=== PATIENT | female | born 1970 | race Caucasian/White ===

== ENCOUNTER 2020-03-03 14:56 | Emergency (ER) | payer SELFPAY ==
[2020-03-03 15:02] VITALS: BP 130/74; PULSE 84; RESP 20; TEMP 36.9; O2SAT 97; BMI 20.3
--- NOTE | 2020-03-03 15:22 | ED_ITS ---
HPI - Headache General: Chief Complaint: Headache Stated Complaint: walter Time Seen by Provider: 03/03/20 15:16 History of Present Illness: HPI Narrative: Patient is a 49-year-old female who comes to the ED with a migraine. Patient says she has a history of migraines and that this current migraine is just like past migraines. Migraine started 3 days ago. She describes having visual aura, but that has since resolved. Endorses photophobia. She has symptoms of nausea and has had multiple episodes of emesis. She describes her migraine is in the back occipital region of head and rates it an 8 out of 10. Denies any recent head injury or trauma to cause acute migraine. She has just been taking Tylenol to help with headache and it has not provided any relief. Denies any numbness/tingling to face or weakness to face. Denies any numbness tingling or weakness to extremities or vision changes. Associated symptoms: Reports nausea and vomiting; Deny chest pain, fever(s) or rash Review of Systems Const: Denies: fever(s), chills or fatigue Eyes: Reports: photophobia; Denies: change in vision or eye discomfort ENMT: Denies: throat pain, odynophagia, nasal discharge or nasal congestion Card: Denies: chest pain, palpitations, edema, swelling of feet/ankles, dyspnea on exertion or orthopnea Resp: Denies: dyspnea, productive cough or non-productive cough GI: Reports: nausea and vomiting; Denies: abdominal pain, diarrhea, constipation or hematochezia : Denies: flank pain, dysuria or hematuria Musc: Denies: neck pain, back pain or extremity swelling Skin/Breast: Denies: rash or new lesions Neuro: Reports: headache(s); Denies: numbness in extremities or weakness in extremities Physical Exam Const: COMMON NORMALS: no acute distress, patient oriented x3, healthy appearing and alert GENERAL APPEARANCE: cooperative and comfortable HENMT: COMMON NORMALS: normocephalic HEAD & SCALP: normocephalic MOUTH: Normal oral and palatal mucosa present THROAT: posterior oropharynx normal and uvula midline Eye: COMMON NORMALS: Equal, round and reactive pupils present, EOMs intact bilaterally and normal visual flanagan by confrontation GENERAL EYE: appearance normal, both eyes and all related structures PUPIL: Yes Equal, round and reactive pupils present Neck/C-Spine: COMMON NORMALS: supple GENERAL: Yes normal visual inspection Resp: COMMON NORMALS: normal respiratory effort, No retractions, No use of accessory muscles and clear to auscultation bilaterally AUSCULTATION: clear to auscultation bilaterally Cardio: COMMON NORMALS: regular rate, regular rhythm, S1 normal heart sound present, S2 normal heart sound present, No gallops present (Cardio), No clicks present (Cardio), No murmurs present (Cardio) and Peripheral pulses 2+ throughout RATE: regular rate RHYTHM: regular rhythm HEART SOUNDS: S1 normal heart sound present and S2 normal heart sound present PERIPHERAL PULSES: Peripheral pulses 2+ throughout GI: COMMON NORMALS: Normal to inspection, nondistended, normoactive bowel sounds present, Soft to palpation, non-tender and no masses PALPATION: Yes Soft to palpation : COMMON NORMALS: Yes no CVA tenderness BLADDER/KIDNEY EXAM: Yes no CVA tenderness Back/Pelvis: COMMON NORMALS: no CVA tenderness Extremity: COMMON NORMALS: normal to inspection and no pedal edema Neuro: COMMON NORMALS: patient oriented x3, CN's II-XII intact bilaterally, moves all extremities, no focal motor deficits, no sensory deficits noted and gait normal SENSORIUM/ORIENTATION: Yes alert COORDINATION/BALANCE: [id number] test normal SPEECH: speech normal GAIT: Yes Normal gait present SENSORY EXAM: Yes extremities (sensation to soft touch intact to extremities bilaterally.) MOTOR EXAM: 5/5 motor strength present throughout COORDINATION: [id number] test normal Skin: GENERAL SKIN EXAM: dry skin Course 2 Reevaluation(s): Reevaluation #1: Patient says her migraine has improved greatly and she now rates it about a 5. Patient is ready to discharge to go home and rest. Time: 16:50 Vital Signs: Vital signs: Vital Signs Temperature 98.5 F 03/03/20 15:02 Pulse Rate 84 03/03/20 15:02 Respiratory Rate 20 H 03/03/20 15:02 Blood Pressure 130/74 03/03/20 15:02 Pulse Oximetry 97 03/03/20 15:02 MDM - Headache MDM Narrative: Medical decision making narrative: Patient is a 49-year-old fe male comes to the ED with a migraine. Patient is a past medical history of migraines and says this migraine is just like any when she has had in the past. Her symptoms are photophobia, nausea and describes visual aura. neuro exam was normal and no neuro deficits seen. Patient was given migraine cocktail of IV fluids, Reglan, Toradol, Decadron and Benadryl. Her migraine greatly improved and she was ready to be discharged. Return to ED precautions given. Patient understood and agreed with plan. Discharge Plan Discharge Patient Disposition: Home Clinical Impression: Migraine Qualifiers: Migraine type: with aura Status migrainosus presence: without status migrainosus Intractability: not intractable Qualified Code(s): G43.109 - Migraine with aura, not intractable, without status migrainosus Condition: Stable Discharge Orders: Discharge Order (Routine); Ordered 03/03/20 Ordered By: Armando Nava Discharge Diet: Regular Discharge Activity: Increase activity as tolerated Patient Instructions: Migraine Headache (ED) Activity Restrictions/Additional Instructions: Follow-up with medical primary care doctor in the next 7 to 10 days for reevaluation. Take [id number] Tylenol or ibuprofen for headaches. Drink plenty of fluids and stay hydrated. Return to the ER or your medical provider if condition worsens. Please read and understand discharge instructions. If any questions, please ask. Coding Level of Care Code ED Dehydrogenation Converter Operator for April Fwkarthik Exam Comprehensive
[2020-03-03] MEDS: metoclopramide 5 mg/mL SDV 2 mL 10 MG IVP (16:30)
[2020-03-03] MEDS: ketorolac 30 mg/mL INJ IVP (16:30)
[2020-03-03] MEDS: sodium chloride 0.9% 1,000 ML 999 ML IV (16:30)
[2020-03-03] MEDS: diphenhydrAMINE 50 mg/mL SDV 1mL 25 MG IVP (16:30)
[2020-03-03] MEDS: dexamethasone 4 mg/mL INJ 10 MG IVP (16:31)
== END 2020-03-03 17:06 | disposition home or self-care (01) ==
PROVIDERS: Emergency Provider Physician Assistant
DX: G43.109 Migraine with aura, not intractable, without status migrainosus (principal)
CPT/HCPCS: 12345; 96374; 96375; 99283; J1100; J1200; J1885; J2765; J7030